=== PATIENT | male | born 1950 | race Caucasian/White ===

== ENCOUNTER 2024-09-18 09:54 | Inpatient (IN) ==
--- NOTE | 2024-09-13 13:29 | Anesthesiology Consultation ---
Date of Service September 13, 2024 Assessment & Plan (1) Encounter for pre-operative examination: Chart Review Chart Review: Acceptable Risk for Surgery (pending surgeon ordered PCP clearance ) and Patient NOT seen in Pre Admission Testing - Awaiting PCP clearance 09/16/24 (ROXANA Sin) (urine culture faxed to PCP office per PCP office request) -Infectious Disease screening: Per PAT nursing assessment on 09/13/24. No known infectious disease contacts in past 10 days or current infectious disease symptoms. No recent travel outside the country. Vascular surgery clearance letter 09/12/24= " "Low risk" for complications for proposed procedure. Patient is cleared for scheduled surgery." Vascular surgery office visit 07/11/24= "seen for evaluation of aneurysm... Abdominal aortic aneurysm... approximately 5cm in diameter, which is likely not the cause of his symptoms such as fullness, discomfort, abdominal pain, bloating or appetite issues. The risk of rupture is estimated to be between 1-3% per year... smoking history may have contributed... continue with usual activities, including golfing... he [patient] prefers endovascular repair and given his anxiety about the aneurysm he would like to proceed with this sooner rather than later. An EKG and echo will be ordered... " (Spoke with Dr. Price- patient has not yet had AAA endovascular repair (was waiting for ECHO and EKG to get scheduled which took two months); was approved for lumbar surgery surgery by vascular surgery per letter 09/12/24- patient can proceed as scheduled with surgery 09/18/24) History Surgery Operation Date: 09/18/24 11:55 Proposed Procedures p L5-S1 Decompression and Fusion - Eze Collins DO Height/Weight Height: 6 ft Weight: 95.254 kg Allergies Allergy/AdvReac Type Severity Reaction Status Date / Time No Known Allergies Allergy Verified 09/13/24 10:23 Medications Home Medications Medication Instructions Recorded Confirmed Last Taken amlodipine 5 mg tablet 5 mg PO QAM 09/13/24 09/13/24 Unknown gabapentin 300 mg capsule 300 mg PO TID 09/13/24 09/13/24 Unknown ibuprofen 200 mg capsule 800 mg PO Q6H PRN Pain 09/13/24 09/13/24 Unknown omega [id number]-[id number]-fish oil 900 1 cap PO QAM 09/13/24 09/13/24 Unknown mg-1,400 mg capsule,delayed release Past Medical History Medical History (Updated 09/16/24 @ 12:51 by Sierra Pearl PA-C) Acute lumbar radiculopathy Seen in [place] ED 09/10/24 Aortic aneurysm - Per abdomen CTA 06/17/24= " maximum diameter of 5.0 x 4.4 cm" > discovered May 2024 in [facility] [place] - amlodipine for this per pt, no HTN - currently following with Dr. Coronado vascular surgeon in [place] Arthritis History of postoperative nausea and vomiting 1968 Hx MRSA infection Lumbar back pain Snores no offical apnea testing Past Family History Family History Sister Diabetes Past Surgical History Surgical History History of repair of rotator cuff right History of surgery on arm left History of tooth extraction Hx of bilateral inguinal hernia repair Social History Smoking Status: Former smoker Do You Dip or Chew Tobacco: Yes (advised npo by [facility] nursing) Smoking End Date: age 61 Hx Alcohol Use: Yes Alcohol type: beer alcohol intake frequency: a few times a week Hx Substance Use: No substance use type: does not use Lab Results Anesthesia Preop Results Results Anesthesia Widget: WBC 3.96 K/ul (4.8-10.8) L 09/11/24 Hgb 14.4 g/dl (14.0-18.0) 09/11/24 Hct 40.8 % (42.0-52.0) L 09/11/24 Plt 191 K/uL (130-400) 09/11/24 Na 138 mmol/L (136-145) 09/11/24 K 3.6 mmol/L (3.5-5.1) 09/11/24 Cl 103 mmol/L (98-107) 09/11/24 CO2 25 mmol/L (21-32) 09/11/24 BUN 13 mg/dl (6-23) 09/11/24 Creat 0.89 mg/dl (0.6-1.4) 09/11/24 Glucose Level 91 mg/dl (70-99(Fasting)) 09/11/24 PT 11.6 Seconds (9.0-12.0) 09/11/24 PTT 25 Seconds (21-31) 09/11/24 INR 1.1 (0.9-1.1) 09/11/24 Urine Color Yellow 09/11/24 Urine Appearance Clear (Clear) 09/11/24 Urine pH 5.5 (4.5-7.5) 09/11/24 Urine Specific [place] 1.016 (1.000-1.030) 09/11/24 Urine Protein Negative (Negative) 09/11/24 Urine Glucose (UA) Negative (Negative) 09/11/24 Urine Ketones Trace (Negative) H 09/11/24 Urine Blood Negative (Negative) 09/11/24 Urine Nitrite Negative (Negative) 09/11/24 Urine Bilirubin Negative (Negative) 09/11/24 Urine Urobilinogen Negative (Negative) 09/11/24 Urine Leukocyte Esterase 2+ (Negative) H 09/11/24 Urine WBC (Auto) 11-20 /hpf (0-5) H 09/11/24 Urine RBC (Auto) 0-2 /hpf (0-2) 09/11/24 Urine Hyaline Casts (Auto) 6-10 /lpf (0-2) H 09/11/24 Urine Epithelial Cells (Auto) 3-5 /hpf (0-2) H 09/11/24 Urine Bacteria (Auto) None Seen (None Seen) 09/11/24 Blood Type A Positive 09/11/24 Antibody Screen NEGATIVE 09/11/24 Testing Laboratory Results 09/11/24= URINE CULTURE: No growth- less than 1000 colonies/ml Electrocardiogram Date: 09/12/24 Findings: + NSR @ (70bpm) RBBB Chest X-Ray Date: 09/11/24 Findings: + NAD No active cardiopulmonary disease. No other abnormalities noted. Mild thoracic spondylosis. Echocardiogram Date: 09/12/24 EF: 55-60% LV Function: normal RWMA: + none Other Findings: + diastolic dysfunction (Grade II); no LVH Valvular Disease: + no significant valvular disease Normal RV size and function Other Testing CTA Abdomen 06/17/24= Aneurysmal dilation of the lower abdominal aorta; maximum diameter of 5.0 x 4.4 cm; length approximately 6.8 cm; lower edge of the aortic bifurcation; neck measures approximately 4.5 cm; small thrombus along the anterior and left more lateral margin; no evidence of leak or dissection. A few tiny benign cysts in the kidney measuring up to 2.3 cm. Prostate is considerably enlarged with extreme dense calcifications throughout the prostate, further clinical evaluation is requested. Associated mild nonspecific prominence of the seminal vesicles. Moderate diverticulitis of the left colon; scattered diverticuli in remainder of the colon; no evidence of acute diverticulitis. Very small sliding-type of hiatal hernia. Tiny umbilical hernia containing fat. Small inguinal hernia containing fat. Mild degenerative changes of the lumbar and the visualized lower dorsal spine.
[2024-09-18] MEDS ORDERED: PROPOFOL IV EMULSION 10 MG/ML 20 ML VIAL IV ONE (10:10)
[2024-09-18] MEDS ORDERED: ONDANSETRON INJ 2 MG/ML 2 ML VIAL ONE (10:10)
[2024-09-18] MEDS ORDERED: DEXAMETHASONE SOD INJ 4 MG/ML VIAL ONE (10:10)
[2024-09-18] MEDS ORDERED: LIDOCAINE 2% 2 ML VIAL/AMP(20MG/ML) INFIL ONE (10:10)
[2024-09-18] MEDS ORDERED: ROCURONIUM BROMIDE 10 MG/ML 5 ML VIAL IV ONE (10:10)
[2024-09-18] MEDS ORDERED: MIDAZOLAM HCL 1 MG/ML 2ML VIAL ONE (10:10)
[2024-09-18] MEDS ORDERED: SUGAMMADEX SODIUM 200 MG/2 ML VIAL IV ONE (10:10)
[2024-09-18] MEDS ORDERED: GLYCOPYRROLATE 0.2 MG/ML VIAL ONE (10:10)
[2024-09-18] MEDS: LR 60ML/HR IV SCH (10:39)
[2024-09-18] MEDS: CeleBREX 200 MG CAP PO SCH (10:39)
[2024-09-18] MEDS: GABAPENTIN 300 MG CAP PO SCH ×2 (10:39→20:29)
[2024-09-18] MEDS: ACETAMINOPHEN 500 MG TAB PO SCH (10:39)
[2024-09-18] MEDS: LR 15ML/HR IV SCH (10:39)
[2024-09-18] MEDS ORDERED: HYDROmorphone INJ 2 MG/ML SYR/VIAL IV PRN (11:58)
[2024-09-18] MEDS ORDERED: PROMETHAZINE HCL 6.25 MG in SODIUM CHLORIDE 0.9% 50 ML IV PRN (11:58)
[2024-09-18] MEDS ORDERED: ATROPINE SULFATE 0.1 MG/ML 10ML SYR IV PRN (11:58)
--- NOTE | 2024-09-18 12:01 | History & Physical Bridge Note ---
Date of Service September 18, 2024 History & Physical Bridge Note I have examined the patient, reviewed the History & Physical and in the interval since the performance of the History & Physical I have noted the following changes of clinical significance: no changes noted
--- NOTE | 2024-09-18 12:03 | History & Physical Report ---
Date of Service September 18, 2024 Assessment & Plan (1) Lumbosacral spondylosis with radiculopathy: Plan: L5-S1 decompression and fusion History of Present Illness Chief Complaint: Back and leg pain Primary Care Provider: Kerri Gillespie This is a 74-year-old male presents with chronic persistent back and leg pain after failing course of nonoperative care is here for surgical invention. Allergies Allergy/AdvReac Type Severity Reaction Status Date / Time No Known Allergies Allergy Verified 09/18/24 10:17 Home Medications Medication Instructions Recorded Confirmed Type amlodipine 5 mg tablet 5 mg PO QAM 09/13/24 09/18/24 History gabapentin 300 mg capsule 300 mg PO TID 09/13/24 09/18/24 History ibuprofen 200 mg capsule 800 mg PO Q6H PRN Pain 09/13/24 09/18/24 History cholecalciferol (vitamin D3) 10 10 mcg PO BID 09/18/24 09/18/24 History mcg (400 unit) capsule (Vitamin D3) Past Med/Surg History Problem List (Updated 09/18/24 @ 12:03 by Eze Collins DO) Lumbosacral spondylosis with radiculopathy Encounter for pre-operative examination Acute lumbar radiculopathy (Acute) Lumbar back pain (Acute) Medical History (Updated 09/18/24 @ 12:03 by Eze Collins DO) Hx MRSA infection History of postoperative nausea and vomiting 1969 Acute lumbar radiculopathy Seen in [place] ED 09/10/24 Arthritis Aortic aneurysm - Per abdomen CTA 06/17/24= " maximum diameter of 5.0 x 4.4 cm" > discovered May 2024 in [facility] [place] - amlodipine for this per pt, no HTN - currently following with Dr. Coronado vascular surgeon in [facility] no offical apnea testing Lumbar back pain Surgical History History of repair of rotator cuff right Hx of bilateral inguinal hernia repair History of surgery on arm left History of tooth extraction Family History Sister Diabetes Social History Smoking Status: Former smoker Tobacco Type: Smokeless Tobacco (Dip or Chew) Smoking End Date: age 61; Second Hand Exposure: No; Do You Dip or Chew Tobacco: Yes (advised npo by [facility] nursing); Tobacco Cessation Education Requested by Patient: No Hx Alcohol Use: Yes Alcohol type: beer Hx Substance Use: No Preferred Language: Latvian Communication Ability: Effective Document Manager Required: No Beliefs That Will Affect Care: None Current Living Situation: Spouse Other Information That Helps Us Care for You: No Feels Safe at Home: Yes Safety Concerns: Feels Safe At This Time Assistive Devices: Denture - Upper, Denture - Lower, Glasses, Hearing Aid - Bilateral and Walker Physical Exam Physical Exam: Patient is alert and oriented Heart regular rhythm lungs clear Results & Data Results & Data Vital Signs (Past 12 Hours) Vital Signs Temp Pulse Resp BP Pulse Ox O2 Del Method 09/18/24 10:22 36.8 C 83 20 143/95 H 98 Room Air
[2024-09-18] MEDS: BUPIVACAINE/EPINEPHRINE 0.25% 1:200,000 30 ML VIAL ONE (13:22)
[2024-09-18] MEDS: ceFAZolin 330 MG/ML 1 GM VIAL ONE (13:22)
[2024-09-18] MEDS: FLOSEAL HEMOSTATIC MATRIX 10ML TOP ONE (14:02)
--- NOTE | 2024-09-18 14:30 | Operative Report ---
Post Operative Report Pre & Post Diagnosis Operation Date: 09/18/24 11:55 Pre-Op Diagnosis: Lumbosacral spondylosis with radiculopathy Post-Op Diagnosis: Lumbosacral spondylosis with radiculopathy I identified the patient and participated in the time-out.: Yes Procedure Operation Date: 09/18/24 11:55 Actual Procedures #1 lumbar decompression with bilateral medial facetectomies and foraminotomies L5-S1. 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 #3 posterior spinal fusion L5-S1. #4 posterior posterior instrumentation L5-S1 using Parada. #5 interbody fusion L5-S1. #6 placement of Spira cage 15 x 26 mm x 2 L5-S1. #7 placement locally harvested morselized autograft posterior gutters. #8 placement of Proteus bone graft combined with Koros in the posterior lateral gutters and os design interbody space. #9 placement of versa wrap of the exposed dura. Surgeon Eze Collins, DO Finished Goods Planner None Estimated Blood Loss 200 Findings Consistent with Post-Op Diagnosis Specimens None Indications This is a 74-year-old male presents publish diagnosis after failing course of nonoperative care is here for surgical invention. Description of Procedure Patient was met with identified informed consent obtained. Patient was then taken to the operative suite underwent intubation placed in a prone position on the Uvaldo table top Jon frame. All bony prominences well-padded eyes inspected to ensure no external pressure placed upon them. This point the lumbar spine was prepped and draped in the normal sterile fashion. Sharp dissection with the assistance of Bovie cautery was formed down to and exposing the lamina and transverse processes of L5-S1. For caudal cephalad fashion complete laminectomy L5 was performed including bilateral medial facetectomies and foraminotomies as well as addressing evidence of a massive facet cyst on the left with direct adherence to the exiting traversing L5 and S1 nerve roots respectively. Was able to remove the extradural mass off of the roots. Places complete pedicle screws were placed in L5 and S1 levels bilaterally with assistance of fluoroscopy with oversized neida placed. By way the transforaminal approach on the right discectomy of L5-S1 was performed endplates guided to subcortically bone and a 15 x 26 mm spiral cage tapped in position. Then proceeded to the left transforaminal region at L5-S1. Again discectomy performed. Endplates guided to subcortically bone. A second 15 x 26 mm spiral cage was tapped in position. Please note os design bone graft was packed into the cages. The rods were then compressed locked in the final position bilaterally. Transverse processes of L5 and the sacral ala burred to subcortical bleeding wound. Proteus bone graft combined with Koros and local autograft placed in the posterolateral gutters. First wrap placed over the exposed dura. 15 round ROBERTO drain inserted. The incision was then closed with 1 Vicryl the fascia 2-0 Vicryl subcutaneously and 4 Monocryl for final skin closure. Steri-Strips sterile dressing placed. Patient awakened and taken to PACU in stable condition. I attest to the content of the Intraoperative Record and any orders documented therein. Any exceptions are noted below.
--- NOTE | 2024-09-18 14:36 | Fluoroscopy Report ---
FL lumbar spine 2-3V CLINICAL HISTORY: L5-S1 DECOMPRESSION/FUSION COMPARISON STUDY: None FLUOROSCOPY TIME: 16 seconds FLUOROSCOPY IMAGES: 3 EXPOSURE DOSE: 13 mGy FINDINGS: Fluoroscopy was provided for L5-S1 laminectomy and fusion. IMPRESSION: Intraoperative fluoroscopy. ACT 112: Negative or not required by law. Electronically signed by: Temo Wang M.D. 09/18/2024 2:35 PM
--- NOTE | 2024-09-18 15:12 | Anesthesiology Progress Note ---
Date of Service September 18, 2024 Anesthesia Post Procedure Vital Signs Vital Signs: Temp Pulse Pulse Resp BP Pulse Ox O2 Del Method 09/18/24 15:05 69 17 139/87 94 Room Air 09/18/24 15:00 36.5 C 79 12 134/79 94 Room Air 09/18/24 14:50 77 13 133/82 93 Room Air 09/18/24 14:40 68 16 124/69 97 Oxymask 09/18/24 14:30 36.9 C 72 12 122/72 98 Oxymask 09/18/24 10:22 36.8 C 83 20 143/95 H 98 Room Air O2 Flow Rate 09/18/24 15:05 0 09/18/24 15:00 0 09/18/24 14:50 0 09/18/24 14:40 4 09/18/24 14:30 8 09/18/24 10:22 Pain Intensity Lower Back: Pain Intensity: 4 Transfer of Care Handoff Completed per policy Notes Mental Status: alert / awake / arousable and participated in evaluation Nausea / Vomiting: adequately controlled Pain: adequately controlled Airway Patency, RR, SpO2: stable & adequate BP & HR: stable & adequate Hydration State: stable & adequate Anesthetic Complications: no major complications apparent and Pt Satisfied with anesthetic care
[2024-09-18] MEDS ORDERED: HYDROmorphone INJ 0.5 MG/0.5 ML SYR IV PRN (15:24)
[2024-09-18] MEDS ORDERED: MAGNESIUM HYDROXIDE SUSP 30 ML UDC PO PRN (15:24)
[2024-09-18] MEDS ORDERED: PROMETHAZINE 12.5 MG/50.5 ML BAG IV PRN (15:24)
[2024-09-18] MEDS ORDERED: FAMOTIDINE 20 MG TAB PO PRN (15:24)
[2024-09-18] MEDS ORDERED: diphenhydrAMINE Capsule 25 MG CAP PO PRN (15:24)
[2024-09-18] MEDS ORDERED: SOD PHOSPHATE/SOD BIPHOSPHATE ENEMA 132 ML BTL PR PRN (15:24)
[2024-09-18] MEDS ORDERED: HYDROmorphone INJ 1 MG/ML SYRINGE IV PRN (15:24)
[2024-09-18] MEDS ORDERED: ONDANSETRON INJ 2 MG/ML 2 ML VIAL IV PRN (15:24)
[2024-09-18] MEDS ORDERED: ONDANSETRON 4 MG OD TAB PO PRN (15:24)
[2024-09-18] MEDS ORDERED: ALUMINUM/MAGNESIUM SUSP 30 ML UDC PO PRN (15:24)
[2024-09-18] MEDS ORDERED: DO NOT ADMINISTER PNEUMOCOCCAL VACCINE PRN (15:24)
[2024-09-18] MEDS ORDERED: LORazepam 0.5 MG TAB PO PRN (15:24)
[2024-09-18] MEDS ORDERED: ACETAMINOPHEN 1,000 MG/100 ML VIAL IV PRN (15:24)
[2024-09-18] MEDS ORDERED: NALOXONE HCL 0.4 MG/1 ML VIAL/CARP IV PRN (15:24)
[2024-09-18] MEDS ORDERED: DO NOT ADMINISTER FLU VACCINE PRN (15:24)
[2024-09-18] MEDS ORDERED: METOCLOPRAMIDE HCL INJ 5 MG/ML 2 ML VIAL IV PRN (15:24)
--- NOTE | 2024-09-18 17:02 | Consultation ---
Date of Consultation September 18, 2024 Assessment & Plan (1) Lumbosacral spondylosis with radiculopathy: (2) Chronic diastolic (congestive) heart failure: (3) Hypertension: Plan 74 year old male with PMH significant for chronic diastolic HF, hypertension, vitamin D deficiency, and lumbosacral spondylosis with radiculopathy who is s/p L5-S1 decompression and fusion on 09/18/[address] Collins. We have been consulted for post operative medical management. Lumbosacral spondylosis with radiculopathy POD#0 L5-S1 decompression and fusion on 09/18/[address] Collins Activity level, pain control, DVT prophylaxis, bowel regimen per primary team Encourage incentive spirometer Monitor am labs for post op anemia - preop Hgb 14 and EBL 200cc PT in am Post operative hypoxia On 2L NC due to sats 88% Wean O2 as able Encourage incentive spirometer Chronic diastolic HF Echo on 09/12/2024 revealed LVEF 55-60%, grade II diastolic dysfunction of LV, aortic valve calcification and hemodynamically significant stenosis Monitor I&Os Hypertension Continue amlodipine Monitor BPs DVT Prophylaxis: TEDs/SCDs per primary team Code Status: FULL CODE PCP: Kerri Gillespie Thank you for this consultation. We will continue to follow this patient with you. [facility] via the role in [employer] - please don't hesitate to reach out with questions. Patient seen in collaboration with Dr. Guerin. Please see addendum. I spent a total of 60 minutes coordinating, documenting and providing care for this patient excluding time spent in the performance of separately billed services or time spent by another provider/QHP. Supervising Physician Co-Signing Physician Notes I have seen and discussed the case with the collaborating advanced practitioner. I agree with the above H&P. I have reviewed and confirmed the patients medical history, the findings on physical examination, and the patients diagnosis and treatment plan with Garland FREDERICK and agree with the information documented. In short, Mr. Dave is a 74 yo gentleman now s/p lumbar decompression and fusion of L5-S1 Patient doing well post opertaively continue home medications follow HH to assess for post op anemia wean O2 as able for post op hypoxia rest of plan as above I spent a total of 20 minutes coordinating, documenting, and providing care for this patient excluding time spent in the performance of separately billed services. All of the aforementioned completed outside of collaborating with the assigned advanced practitioner for a full treatment plan. I have reviewed the advanced practitioner's documentation, and I agree with, and take responsibility for the plan of care History of Present Illness Requesting Physician: Eze Collins DO Reason for Consultation: Post operative medical management Attending Physician: Eze Collins DO History of Present Illness 74 year old male with PMH significant for chronic diastolic HF, hypertension, vitamin D deficiency, and lumbosacral spondylosis with radiculopathy who is s/p L5-S1 decompression and fusion on 09/18/[address] Collins. We have been consulted for post operative medical management. Allergies Allergy/AdvReac Type Severity Reaction Status Date / Time No Known Allergies Allergy Verified 09/18/24 10:17 Home Medications Medication Instructions Recorded Confirmed Type amlodipine 5 mg tablet 5 mg PO QAM 09/13/24 09/18/24 History gabapentin 300 mg capsule 300 mg PO TID 09/13/24 09/18/24 History ibuprofen 200 mg capsule 800 mg PO Q6H PRN Pain 09/13/24 09/18/24 History cholecalciferol (vitamin D3) 10 10 mcg PO BID 09/18/24 09/18/24 History mcg (400 unit) capsule (Vitamin D3) Patient History Medical History (Updated 09/18/24 @ 16:54 by OTONIEL Ames) Vitamin D deficiency Lumbar back pain Acute lumbar radiculopathy Encounter for pre-operative examination Hx MRSA infection History of postoperative nausea and vomiting 1969 Acute lumbar radiculopathy Seen in [place] 09/10/24 Arthritis Aortic aneurysm - Per abdomen CTA 06/17/24= " maximum diameter of 5.0 x 4.4 cm" > discovered May 2024 in [facility] [place] - amlodipine for this per pt, no HTN - currently following with Dr. Coronado vascular surgeon in [facility] no offical apnea testing Lumbar back pain Surgical History History of repair of rotator cuff right Hx of bilateral inguinal hernia repair History of surgery on arm left History of tooth extraction Family History (Updated 08/06/25 @ 16:55 by OTONIEL Ames) Sister Diabetes Mother Diabetes Social History (Updated 09/18/24 @ 16:55 by OTONIEL Ames) Smoking Status: Former smoker Tobacco Type: Smokeless Tobacco (Dip or Chew) Second Hand Exposure: No; Do You Dip or Chew Tobacco: Yes (advised npo by [facility] nursing); Hx Alcohol Use: Yes Alcohol type: beer Hx Substance Use: No Preferred Language: Danish Communication Ability: Effective Fire Prevention Captain Required: No Beliefs That Will Affect Care: None Current Living Situation: Spouse Feels Safe at Home: Yes Assistive Devices: Denture - Upper, Denture - Lower, Glasses, Hearing Aid - Bilateral and Walker Review of Systems Review of Systems: All systems reviewed & are unremarkable except as noted in HPI & below Results & Data Vital Signs (Past 12 Hours) Vital Signs Temp Pulse Pulse Pulse Resp BP Pulse Ox 09/18/24 16:34 36.4 C L 84 18 128/88 96 09/18/24 16:09 75 16 126/78 91 09/18/24 15:25 36.6 C 73 18 126/78 94 09/18/24 15:19 73 13 132/78 93 09/18/24 15:05 69 17 139/87 94 09/18/24 15:00 36.5 C 79 12 134/79 94 09/18/24 14:50 77 13 133/82 93 09/18/24 14:40 68 16 124/69 97 09/18/24 14:30 36.9 C 72 12 122/72 98 09/18/24 10:22 36.8 C 83 20 143/95 H 98 O2 Del Method O2 Flow Rate 09/18/24 16:34 Nasal Cannula 2 09/18/24 16:09 Room Air 09/18/24 15:25 Room Air 09/18/24 15:19 Room Air 0 09/18/24 15:05 Room Air 0 09/18/24 15:00 Room Air 0 09/18/24 14:50 Room Air 0 09/18/24 14:40 Oxymask 4 09/18/24 14:30 Oxymask 8 09/18/24 10:22 Room Air Medications Administered Current Inpatient Medications Acetaminophen (Acetaminophen 500 Mg Tab) 1,000 mg PO PREOP BEKAH Stop: 09/18/24 18:00 Last Admin: 09/18/24 10:39 Dose: 1,000 mg Acetaminophen (Acetaminophen 500 Mg Tab) 1,000 mg PO Q8H PRN PRN Reason: MILD Pain (1,2,3) & Pre PT Stop: 10/18/24 15:23 Al Hydrox/Mg Hydrox/Simethicone (Aluminum/Magnesium Susp 30 Ml Udc) 30 ml PO Q6H PRN PRN Reason: Dyspepsia Stop: 10/18/24 15:23 Amlodipine Besylate (Amlodipine Besylate 5 Mg Tab) 5 mg PO QAM BEKAH Stop: 10/19/24 08:59 Atropine Sulfate (Atropine Sulfate 0.1 Mg/Ml 10ml Syr) 0.5 mg IV Q1M PRN PRN Reason: PACU Use-HR<40 &/or Bradycardi Stop: 09/18/24 19:58 Bisacodyl (Bisacodyl 10 Mg Supp) 10 mg SD DAILY PRN PRN Reason: Constipation Stop: 10/18/24 15:23 Celecoxib (Celebrex 200 Mg Cap) 200 mg PO PREOP BEKAH Stop: 09/18/24 18:00 Last Admin: 09/18/24 10:39 Dose: 200 mg Diphenhydramine HCl (Diphenhydramine Capsule 25 Mg Cap) 25 mg PO Q6H PRN PRN Reason: Allergic Rhinitis/Insomnia Stop: 10/18/24 15:23 Ephedrine Sulfate (Ephedrine Sulfate 50 Mg/Ml Amp) 5 mg IV Q5M PRN PRN Reason: PACU Use Only-SBP<90 mmHg Stop: 09/18/24 19:58 Famotidine (Famotidine 20 Mg Tab) 20 mg PO Q12H PRN PRN Reason: Dyspepsia Stop: 10/18/24 15:23 Gabapentin (Gabapentin 300 Mg Cap) 300 mg PO PREOP BEKAH Stop: 09/18/24 18:00 Last Admin: 09/18/24 10:39 Dose: 300 mg Gabapentin (Gabapentin 300 Mg Cap) 300 mg PO TID BEKAH Stop: 10/18/24 20:59 Hydromorphone HCl (Hydromorphone Inj 2 Mg/Ml Syr/Vial) 0.5 mg IV Q5M PRN PRN Reason: PACU Use Only-Pain Stop: 09/18/24 19:58 Hydromorphone HCl (Hydromorphone Inj 0.5 Mg/0.5 Ml Syr) 0.5 mg IV Q3H PRN PRN Reason: MODERATE Pain(4,5,6)/Pre PT Stop: 10/02/24 15:23 Hydromorphone HCl (Hydromorphone Inj 1 Mg/Ml Syringe) 1 mg IV Q3H PRN PRN Reason: SEVERE Pain (7,8,9,10) Stop: 10/02/24 15:23 Hydroxyzine HCl (Hydroxyzine Hcl 25 Mg Tab) 25 mg PO Q8H PRN PRN Reason: Anxiety Stop: 10/18/24 15:23 Lactated Ringer's (Lr) 1,000 mls @ 15 mls/hr IV .Q24H BEKAH Stop: 09/19/24 05:59 Last Infusion: 09/18/24 12:22 Dose: Infused Lactated Ringer's (Lr) 1,000 mls @ 60 mls/hr IV .[id number] BEKAH Stop: 09/18/24 22:39 Last Admin: 09/18/24 10:39 Dose: Not Given Cefazolin Sodium (Ancef 2000mg) 2,000 mg in 15 mls @ 3.75 mls/min IV PREOP BEKAH; Protocol Stop: 09/18/24 18:00 Last Admin: 09/18/24 12:24 Dose: 3.75 mls/min Promethazine HCl 6.25 mg/ (Sodium Chloride) 50.25 mls @ 204 mls/hr IV ONCE PRN PRN Reason: PACU Use Only-Nausea/Vomiting Stop: 09/18/24 19:58 Acetaminophen (Ofirmev) 1,000 mg in 100 mls @ 400 mls/hr IV Q8H PRN PRN Reason: MILD Pain (1,2,3) & Pre PT Stop: 09/19/24 15:24 Cefazolin Sodium (Ancef 2000mg) 2,000 mg in 15 mls @ 3.75 mls/min IV Q8H BEKAH; Protocol Stop: 09/19/24 04:48 Promethazine HCl (Phenergan) 12.5 mg in 50.5 mls @ 202 mls/hr IV Q6H PRN PRN Reason: Nausea And Vomiting Stop: 10/18/24 15:23 Dexamethasone 6 mg/ Syringe 1.5 mls @ 1 mls/min IV DAILY BEKAH Stop: 09/21/24 09:02 Influenza Virus Vaccine Quadrival (Do Not Administer Flu Vaccine) 1 each N/A PRN PRN PRN Reason: Notification Stop: 10/18/24 15:23 Lorazepam (Lorazepam 0.5 Mg Tab) 0.5 mg PO Q8H PRN PRN Reason: Sedation/Anxiety Stop: 10/18/24 15:23 Lorazepam (Lorazepam 2 Mg/1 Ml Vial) 0.5 mg IV Q8H PRN PRN Reason: Sedation/Anxiety Stop: 10/18/24 15:23 Magnesium Hydroxide (Magnesium Hydroxide Susp 30 Ml Udc) 30 ml PO Q24H PRN PRN Reason: Constipation Stop: 10/18/24 15:23 Metoclopramide HCl (Metoclopramide Hcl Inj 5 Mg/Ml 2 Ml Vial) 10 mg IV Q6H PRN PRN Reason: Nausea &/or Vomiting Stop: 10/18/24 15:23 Naloxone HCl (Naloxone Hcl 0.4 Mg/1 Ml Vial/Carp) 0.1 mg IV Q5M PRN PRN Reason: Oversedation/Resp depression Stop: 10/18/24 15:23 Ondansetron HCl (Ondansetron Inj 2 Mg/Ml 2 Ml Vial) 4 mg IV Q6H PRN PRN Reason: Nausea &/or Vomiting Stop: 10/18/24 15:23 Ondansetron HCl (Ondansetron 4 Mg Od Tab) 4 mg PO Q6H PRN PRN Reason: Nausea Stop: 10/18/24 15:23 Oxycodone HCl (Oxycodone Hcl Ir 5 Mg Tab (Immediate Release)) 5 - 10 mg PO Q4H PRN PRN Reason: MOD/SEV Pain & Pre PT Stop: 10/02/24 15:23 Last Admin: 09/18/24 15:41 Dose: 10 mg Pneumococcal Polyvalent Vaccine (Do Not Administer Pneumococcal Vaccine) 1 each N/A PRN PRN PRN Reason: Notification Stop: 10/18/24 15:23 Polyethylene Glycol (Polyethylene (Miralax) 17 Gm Pack) 17 gm PO Q6 BEKAH Stop: 10/19/24 05:59 Senna/Docusate Sodium (Docusate Sodium/Senna 50/8.6mg Tab) 2 tab PO HS BEKAH Stop: 10/18/24 20:59 Sodium Biphosphate/Sodium Phosphate (Sod Phosphate/Sod Biphosphate Enema 132 Ml Btl) 132 ml SD ONE PRN PRN Reason: Constipation Stop: 10/18/24 15:23 Tramadol HCl (Tramadol Hcl 50 Mg Tablet) 50 - 100 mg PO Q4H PRN PRN Reason: MOD/SEV Pain & Pre PT Stop: 10/18/24 15:23 Vitamin D (Cholecalciferol 10 Mcg (400 Units) Tab) 10 mcg PO BID BEKAH Stop: 10/18/24 20:59 ECG Additional Comments: I have independently reviewed and interpreted patient's pre-op EKG on 09/12/2024 which revealed: NSR with RBBB at rate of 70 bpm
[2024-09-18] MEDS: DOCUSATE SODIUM/SENNA 50/8.6MG TAB PO SCH (20:29)
[2024-09-18] MEDS: CHOLECALCIFEROL 10 MCG (400 UNITS) TAB PO SCH (20:29)
[2024-09-19] MEDS: POLYETHYLENE (MIRALAX) 17 GM PACK PO SCH (05:25)
[2024-09-19 06:40] LABS: Hematocrit (blood only) 36.6 % (42.0-52.0); Hemoglobin 13.1 g/dl (14.0-18.0); Immature Granulocytes # (auto) 0.03 K/uL (0.01-0.20); Immature Granulocytes % (auto) 0.3 %; Mean Corpuscular Hemoglobin 32.8 pg (25.0-34.0); Mean Corpuscular Volume 91.5 fL (80.0-100.0); Platelet Count 176 K/uL (130-400); RDW Standard Deviation 38.7 fL (36.4-46.3); Red Blood Count 4.00 M/uL (4.70-6.10); White Blood Count 11.58 K/ul (4.8-10.8)
[2024-09-19 07:01] LABS: Anion Gap 7.0 (3-11); Blood Urea Nitrogen 17.0 mg/dl (6-23); Calcium 9.1 mg/dl (8.6-10.3); Carbon Dioxide 27.0 mmol/L (21-32); Chloride 101.0 mmol/L (98-107); Creatinine Clr Calc Pharmacy 84.5 ml/min; Glucose 123.0 mg/dl (70-99(Fasting)); Potassium 4.8 mmol/L (3.5-5.1); Sodium 135.0 mmol/L (136-145)
[2024-09-19] MEDS: ACETAMINOPHEN 500 MG TAB PO PRN (07:35)
[2024-09-19] MEDS: dexAMETHasone 6 MG in SYRINGE 0 ML IV SCH (07:39)
--- NOTE | 2024-09-19 08:09 | Orthopedic Progress Note ---
Date of Service September 19, 2024 Assessment & Plan (1) Lumbosacral spondylosis with radiculopathy: Plan: At this time initiate physical therapy monitor his ROBERTO output hopefully discharge over the next few days. Admission and Anticipated Discharge Date Admission Date: September 18, 2024 Subjective Patient is back pain is controlled leg symptoms markedly improved Physical Exam Physical Exam: Patient is currently in bed. Is comfortable. Distracted testing. Results & Data Vital Signs (Past 12 Hours) Vital Signs Temp Pulse Resp BP Pulse Ox O2 Del Method 09/19/24 07:04 36.6 C 77 16 122/78 95 Room Air 09/19/24 04:12 36.5 C 73 18 138/81 96 Room Air 09/18/24 23:14 36.8 C 82 18 128/79 96 Room Air 09/18/24 21:01 36.6 C 92 H 18 123/80 94 Room Air
--- NOTE | 2024-09-19 13:05 | Hospitalist Progress Note ---
Date of Service September 19, 2024 Assessment & Plan (1) Lumbosacral spondylosis with radiculopathy: (2) S/P spinal surgery: Plan: Patient is a 8y/o M with PMHx significant for chronic diastolic HF, HTN, vitamin D deficiency and lumbosacral spondylosis with radiculopathy who is being seen in consultation for routine postoperative medical management after undergoing elective L5-S1 decompression and fusion performed by Dr. Collins on 09/18/24. POD#1 s/p L5-S1 decompression and fusion on 09/18/[address] Collins Per primary service for pain control/bowel regimen, wound care, anticoagulation and activities Continue incentive spirometry, PT/OT when appropriate as per primary service Postop hypoxia resolved --> pt saturating in upper 90s SpO2 on RA (3) Acute blood loss anemia: Plan: ISO expected surgical loss, EBL: 200mL Preop Hgb 14 --> POD#1 Hgb 13.1, likely dilutional component contributing as well No indication to transfuse at this time; continue to monitor (4) Chronic diastolic (congestive) heart failure: Plan: Remains euvolemic on exam today; continue to closely monitor volume status TTE, 08/2024: EF 55-60%, grade II DD, aortic valve calcification but no stenosis, no significant valvular pathology (5) Hypertension: Plan: Postop BP stable Continue amlodipine w/ holding parameters; routine BP monitoring DVT Prophylaxis: As per primary service Code Status: FULL CODE Disposition: Routine d/c planning as per primary service Patient seen in collaboration with Dr. Mcmahon. Please see addendum. I spent a total of 30 minutes coordinating, documenting, and providing care for this patient excluding time spent in the performance of separately billed services or time spent by another provider/QHP. This included personally reviewing all current laboratories and imaging studies, medical reconciliation, outpatient chart review and discussion with specialists. This chart was completed in part utilizing Speech Voice Recognition Software. Grammatical errors, random word insertions, pronoun errors, and incomplete sentences are an occasional consequence of this system due to software limitations, ambient noise, and hardware issues. Any formal questions or concerns about the content, text, or information contained within the body of this dictation should be directly addressed to the provider for clarification. Admission and Anticipated Discharge Date Admission Date: September 18, 2024 Subjective Patient seen and examined in room E321-1. Pain well-controlled. Tolerating regular diet without issue. ROBERTO drain x 1 intact and draining serosanguineous output. Denies any CP and SOB. Reports having 1 BM postoperatively. Denies any abdominal pain/discomfort or abdominal distention. Notes preoperative pain in LLE has resolved. Review of Systems Review of Systems: At least ten systems reviewed and negative, except as noted in the subjective section. Physical Exam Physical Exam: General: WD/WN, NAD, sitting up in chair at bedside, A&Ox3, conversing appropriately, pleasant HEENT: Normocephalic, atraumatic, oropharynx appears moist Respiratory: Normal respiratory effort, lungs CTAB Cardiovascular: Regular rate/rhythm, normal peripheral pulses, no BLE edema Abdomen/GI: Normal bowel sounds, soft, nondistended, nontender to palpation in all quadrants. Extremities/MSK: Actively moves all extremities, surgical dressing on low back C/D/I, ROBERTO drain x 1 with serosanguineous output Neurologic: No overt focal deficits, CN's II-XI not formally tested but appear grossly intact bilaterally Results & Data Results & Data Vital Signs (Past 12 Hours) Vital Signs Temp Pulse Resp BP Pulse Ox O2 Del Method 09/19/24 11:29 36.5 C 78 16 146/80 H 97 Room Air 09/19/24 07:30 Room Air 09/19/24 07:04 36.6 C 77 16 122/78 95 Room Air 09/19/24 04:12 36.5 C 73 18 138/81 96 Room Air Laboratory Results Short CBC 09/19/24 Range/Units 06:05 WBC 11.58 H (4.8-10.8) K/ul Hgb 13.1 L (14.0-18.0) g/dl Hct 36.6 L (42.0-52.0) % Plt Count 176 (130-400) K/uL BMP 09/19/24 06:05 Sodium 135 L Potassium 4.8 Chloride 101 Carbon Dioxide 27 BUN 17 Creatinine 0.93 Glucose 123 H Calcium 9.1 (5) Hypertension Hypertension type: unspecified Qualified Code(s): I10 - Essential (primary) hypertension
[2024-09-20 06:28] LABS: Hematocrit (blood only) 40.4 % (42.0-52.0); Hemoglobin 14.2 g/dl (14.0-18.0); Mean Corpuscular Hemoglobin 32.4 pg (25.0-34.0); Mean Corpuscular Volume 92.2 fL (80.0-100.0); Platelet Count 190 K/uL (130-400); RDW Standard Deviation 39.5 fL (36.4-46.3); Red Blood Count 4.38 M/uL (4.70-6.10); White Blood Count 11.33 K/ul (4.8-10.8)
[2024-09-20 06:46] LABS: Anion Gap 7.0 (3-11); Blood Urea Nitrogen 20.0 mg/dl (6-23); Calcium 9.4 mg/dl (8.6-10.3); Carbon Dioxide 30.0 mmol/L (21-32); Chloride 101.0 mmol/L (98-107); Creatinine Clr Calc Pharmacy 99.5 ml/min; Glucose 105.0 mg/dl (70-99(Fasting)); Magnesium 2.3 mg/dl (1.7-2.4); Potassium 4.3 mmol/L (3.5-5.1); Sodium 138.0 mmol/L (136-145)
[2024-09-20 08:42] VITALS: RESP 17; O2SAT 98
--- NOTE | 2024-09-20 11:16 | Discharge Summary ---
Date of Service September 20, 2024 Admission HPI Per Admitting Provider This is a 74-year-old male presents with chronic persistent back and leg pain after failing course of nonoperative care is here for surgical invention. Principal Diagnosis Lumbar spondylosis with radiculopathy Discharge Data Allergies Allergy/AdvReac Type Severity Reaction Status Date / Time No Known Allergies Allergy Verified 09/18/24 10:17 Consultations 09/18/24 15:24 Consult Hospitalist Routine Procedures Performed Operation Date: 09/18/24 11:55 Actual Procedures p L5-S1 Decompression and Fusion(Not Applicable) - Eze Collins DO Ordered Studies 09/18/24 11:55 FL lumbar spine 2-3V Routine Hospital Course (1) Lumbosacral spondylosis with radiculopathy: Patient went lumbar decompression and fusion tolerated this well was taken to orthopedic for postoperative. Postop he progressed appropriately. Marked improvement of his leg pain. Pain well-controlled. Extra strength testing. ROBERTO drain decreasing appropriately. Subsequently discharged home. Discharge orders and instructions found in chart for further review. Total Time Total Time Spent Total Time Spent (In Minutes): 20 minutes Discharge Plan Discharge Items Patient Disposition: Home - Self-Care Reason For Visit: Foraminal Stenosis of Lumbar Region Discharge Diagnosis: Lumbar spondylosis with radiculopathy Activity: As commented below Non-emergency contact: Primary Care Provider Call non-emergency contact if: you have any medication questions Follow-up/Referrals: Kerri Gillespie D.O. [Primary Care Provider] - Diet: Regular Addtl Attending Provider Instructions: ACTIVITY RECOMMENDATIONS: SELF CARE INSTRUCTIONS AFTER THORACIC/LUMBAR FUSIONS 1. You may walk to your tolerance. It is good exercise for your legs and back. Expect some back and intermittent leg aches and pains. 2. You may perform "counter-top" level activities (make a sandwich, bernabe with a project, etc.). 3. No bending or lifting of more than 10 pounds or back twisting of any nature (roll like a log when turning in bed). 4. You may ride in a car for 20-30 minutes at a time. No driving until after your first visit with your doctor. 5. Frequent changes of position and restricting sitting to 30 minutes at a time will help limit the amount of back spasms and stiffness you may experience. 6. You may discontinue the use of ambulatory aids (cane, crutches, etc.) once your strength and confidence allow. 7. You may clinical biostatistics director the shower and let water strike your incision when you arrive home at least once daily. Do not take a tub bath, sit in a hot tub or go into a swimming pool until after your first recheck in the office. 8. You may resume previous diet. SPECIAL CARE INSTRUCTIONS: VERY IMPORTANT TO READ AND REVIEW A. Your surgical incision has been closed with a cosmetic suture under the skin that will dissolve in about 6 weeks. In 14 days, you can use a pair of clean scissors and cut the suture that is left outside of the skin at the ends of your incision. 1. The small skin tapes can be removed 7 days after surgery if they have not fallen off by that point. 2. You may keep the wound open to air as much as possible to promote healing after post-op day number 5 unless told otherwise by your doctor. 3. If you think the wound looks like it is becoming infected (redness or worsening drainage) and/or you are experiencing fever, chill or worsening back pain and muscle spasms, contact the office so that we may evaluate you as soon as possible. B. Complications are uncommon, but please contact us if you have any signs or symptoms of: 1. wound infection (fever higher than 102.5 degrees F, redness, separation of wound, drainage, or increasing pain from the incision) 2. blood clots in legs (pain, swelling, redness and warmth in legs) 3. urinary tract infection (fever higher than 102.5 degrees F, burning upon urination or increased frequency of urination) 4. nerve problems (inability to walk on your toes or heels, numbness, loss of bowel or bladder control) 5. any other symptoms that concern you C. Please call the office at if you have any concerns or questions about your operation or recovery. D. No smoking! Smoking drastically decreases the chance of a solid fusion. E. Do not take any anti-inflammatory medications (Indocin, Advil, Motrin, Aspirin, Naprosyn, etc.) as these may inhibit the chance of a solid fusion. Tylenol is okay to take for pain. MANAGING PAIN AFTER SPINAL SURGERY 1. Narcotic medication is intended for short-term use and will be provided for surgical pain. Surgical pain usually lasts for a period of 4-6 weeks. Narcotic medication includes Percocet, Vicodin, Darvocet, Tylenol #3 or Lortab. 2. Longer-term pain is more appropriately treated with non-narcotic medication such as Tylenol ES. 3. Muscle spasm is not appropriately treated with narcotics. Muscle relaxers such as Soma, Flexeril or Skelaxin can be used along with Tylenol ES. 4. Remember that we all live with some "aches and pains". This is not unusual or uncommon after an injury or as we get older. a. Back pain is expected and may include muscle spasms for 4 to 6 weeks after surgery. The pain should gradually improve. If the pain worsens for no apparent reason, please contact the office. b. Intermittent leg pain may also be experienced and should not be concerned about unless it worsens for no apparent reason. If so, please contact the office. 5. We will provide appropriate medication within the normal guidelines of their prescribed use. We will also be very cautious and aware of potential abuse and extended duration of patients' medication needs. a. Pain medications are for your comfort and to assist with sleep and rest so that the tissue can heal. They are not provided in order to return to normal activity and should not be used through the day. To do so or worsening pain at night can result from ongoing tissue damage and development of tolerance to the prescribed medicine. 6. Please allow 2-3 days to process refills. Prescriptions will not be mailed but must be picked up at the office. FOLLOW UP VISIT: Keep your scheduled follow-up appointment. Any questions, please call the office at . Pending Studies at Discharge: No Stand-Alone Forms: My [facility] [place], Smoking Cessation Medications and DC Order Prescriptions: New tramadol 50 mg tablet 50 mg PO Q6H PRN (Reason: pain, moderate) Qty: 30 0RF oxycodone 5 mg tablet 5 mg PO Q6H PRN (Reason: pain) Qty: 30 0RF Continued amlodipine 5 mg Tablet 5 mg PO QAM gabapentin 300 mg Capsule 300 mg PO TID ibuprofen 200 mg Capsule 800 mg PO Q6H PRN (Reason: Pain) cholecalciferol (vitamin D3) [Vitamin D3] 10 mcg (400 unit) Capsule 10 mcg PO BID Discharge Orders: Discharge Order (Routine); Ordered 09/20/24 Ordered By: Eze Collins Admission Data Admit Date/Time: 09/18/24 14:35 Attending Provider: Eze Collins Admit Provider: Eze Collins Primary Care Provider: Kerri Gillespie Other Providers: Frieda Lopez
[2024-09-20 12:29] VITALS: BP 140/86; PULSE 70; TEMP 97.9
--- NOTE | 2024-09-20 13:22 | Hospitalist Progress Note ---
Date of Service September 20, 2024 Assessment & Plan (1) Lumbosacral spondylosis with radiculopathy: (2) S/P spinal surgery: Plan: Patient is a 8y/o M with PMHx significant for chronic diastolic HF, HTN, vitamin D deficiency and lumbosacral spondylosis with radiculopathy who is being seen in consultation for routine postoperative medical management after undergoing elective L5-S1 decompression and fusion performed by Dr. Collins on 09/18/24. POD#2 s/p L5-S1 decompression and fusion on 09/18/[address] Collins Per primary service for pain control/bowel regimen, wound care, anticoagulation and activities Continue incentive spirometry, PT/OT when appropriate as per primary service (3) Acute postoperative pulmonary insufficiency: Plan: Postop hypoxia quickly resolved --> pt remains saturating in upper 90s SpO2 on RA (4) Acute blood loss anemia: Plan: ISO expected surgical loss, EBL: 200mL Likely dilutional component contributing as well Preop Hgb 14 --> POD#1 Hgb 13.1 -> POD#2 Hgb 14.2 (WNL) No indication to transfuse at this time, continue to monitor while inpt (5) Chronic diastolic (congestive) heart failure: Plan: Remains euvolemic on exam; continue to closely monitor volume status while inpt TTE, 08/2024: EF 55-60%, grade II DD, aortic valve calcification but no stenosis, no significant valvular pathology (6) Hypertension: Plan: Postop BP stable Continue amlodipine w/ holding parameters; routine BP monitoring DVT Prophylaxis: As per primary service Code Status: FULL CODE Disposition: Routine d/c planning as per primary service --> expect pt to be d/c'd home today We will follow the patient with you during their hospital stay. You can reach a member of the [facility]ist Team 05/09 via [employer]. Patient seen in collaboration with Dr. Mcmahon. Please see addendum. I spent a total of 30 minutes coordinating, documenting, and providing care for this patient excluding time spent in the performance of separately billed services or time spent by another provider/QHP. This included personally reviewing all current laboratories and imaging studies, medical reconciliation, outpatient chart review and discussion with specialists. This chart was completed in part utilizing Speech Voice Recognition Software. Grammatical errors, random word insertions, pronoun errors, and incomplete sentences are an occasional consequence of this system due to software limitations, ambient noise, and hardware issues. Any formal questions or concerns about the content, text, or information contained within the body of this dictation should be directly addressed to the provider for clarification. Admission and Anticipated Discharge Date Admission Date: September 18, 2024 Subjective Patient seen and examined in room E321-1. Pain remains well-controlled. Reports plan is to be discharged home today. Denies any major concerns/complaints. Review of Systems Review of Systems: At least ten systems reviewed and negative, except as noted in the subjective section. Physical Exam Physical Exam: General: WD/WN, NAD, sitting up at side of bed, A&Ox3, conversing appropriately, pleasant HEENT: Normocephalic, atraumatic, oropharynx appears moist Respiratory: Normal respiratory effort, lungs CTAB Cardiovascular: Regular rate/rhythm, normal peripheral pulses, no BLE edema Abdomen/GI: Normal bowel sounds, soft, nondistended, nontender to palpation in all quadrants. Extremities/MSK: Actively moves all extremities, surgical dressing on low back C/D/I, ROBERTO drain x 1 with serosanguineous output Neurologic: No overt focal deficits, CN's II-XI not formally tested but appear grossly intact bilaterally Results & Data Results & Data Vital Signs (Past 12 Hours) Vital Signs Temp Pulse Pulse Resp BP Pulse Ox O2 Del Method 09/20/24 13:10 36.6 C 70 74 17 140/86 98 09/20/24 12:27 36.6 C 70 17 140/86 98 Room Air 09/20/24 08:40 36.5 C 71 17 130/78 98 Room Air 09/20/24 07:20 Room Air Laboratory Results Short CBC 09/20/24 Range/Units 06:04 WBC 11.33 H (4.8-10.8) K/ul Hgb 14.2 (14.0-18.0) g/dl Hct 40.4 L (42.0-52.0) % Plt Count 190 (130-400) K/uL BMP 09/20/24 06:04 Sodium 138 Potassium 4.3 Chloride 101 Carbon Dioxide 30 BUN 20 Creatinine 0.79 Glucose 105 H Calcium 9.4 (6) Hypertension Hypertension type: unspecified Qualified Code(s): I10 - Essential (primary) hypertension
== END 2024-09-20 14:08 | disposition home or self-care (01) | DRG 402 ==
LOC: ASU 09:54 → 3E 14:35